=== PATIENT | female | born 1975 ===

== ENCOUNTER 2018-03-15 08:31 | Day surgery (SDC) | payer OTHER ==
[2018-03-15] MEDS ORDERED: Lactated Ringer's 500 ML IV ONE (08:48)
[2018-03-15 10:03] VITALS: O2SAT 100
[2018-03-15] MEDS ORDERED: Propofol 10 mg/ml Inj (20 ML) ONE (10:56)
[2018-03-15 11:35] VITALS: BP 101/61; PULSE 56; RESP 15; TEMP 98
== END 2018-03-15 12:24 | disposition home or self-care (01) ==
LOC: H.ENDO 08:31
PROVIDERS: ATTEND Internal Medicine Gastroenterology
DX: R19.4 Change in bowel habit (principal); K62.5 Hemorrhage of anus and rectum; K64.0 First degree hemorrhoids
CPT/HCPCS: 45378; J2001; J2704; J7120